=== PATIENT | female | born 1955 | race Caucasian/White ===

== ENCOUNTER 2016-09-28 21:06 | Emergency (ER) | payer SELFPAY ==
[~2016-09-28] VITALS: Ht 165.1 cm; Wt 61.2 kg
[2016-09-29 06:26] VITALS: BP 105/72
== END 2016-09-29 06:27 | disposition home or self-care (01) ==
LOC: ER 21:08
DX: F10.129 Alcohol abuse with intoxication, unspecified (principal); F32.9 Major depressive disorder, single episode, unspecified; F17.210 Nicotine dependence, cigarettes, uncomplicated
CPT/HCPCS: A4606; Z7610